=== PATIENT | female | born 1945 | race Caucasian/White ===

== ENCOUNTER 2017-02-16 15:50 | Inpatient (IN) | payer MEDICARE ==
[~2017-02-16] VITALS: Ht 162.6 cm; Wt 76.7 kg
[2017-02-16] VITALS (15 sets, daily range): BP systolic 79–115; BP diastolic 43–63; PULSE 35–50; RESP 12–18; TEMP 97.6–98; O2SAT 94–100
[2017-02-16] MEDS ORDERED: ATROPINE SULFATE 1 MG/10 ML SYRINGE ONE (16:11)
[2017-02-16] MEDS ORDERED: SODIUM CHLORIDE 0.9% FLUSH 10 ML FLUSH IVF PRN (16:30)
[2017-02-16] MEDS ORDERED: SODIUM CHLOR 0.9% 1000 ML INJ 1,000 ML IV ONE ×3 (16:30→17:30)
[2017-02-16] MEDS ORDERED: ATROPINE SULFATE 1 MG/10 ML SYRINGE IV PUSH ONE ×2 (16:30→18:15)
--- NOTE | 2017-02-16 16:32 | PD ---
HPI Chief Complaint: Dizziness Time Seen by Provider: 16:00 Travel History International Travel<30 days: No Contact w/Intl Traveler<30days: No Traveled to known affect area: No History of Present Illness HPI Patient is a 71-year-old female who presents to emergency room complaints of lightheadedness, dizziness, diaphoresis. Patient reports that symptoms began 1 ago after she came home from her exercise class. Patient reports that she was getting ready to walk her dog when all of a sudden, she became lightheaded and dizzy. Reports that she became diaphoretic and became nauseous and vomited x 1. Reports that she has seen her pcp recently - reports that her medications were changed from metoprolol to verapamil 120 mg and she started these medications 2 days ago. Patient reports that she also takes propanolol 120 mg, lisinopril 10 mg, amlodipine 5 mg, atorvastatin 40 mg. Reports that the metoprolol made her left leg swell too much so her medication. PFSH Past Medical History Gastrointestinal Disorders: Yes (Guillermo's esophagus ) Hypertension: Yes Tetanus Vaccination: > 5 Years Influenza Vaccination: No ?: Not Menopausal: Yes Past Surgical History Other Surgery: Yes (Adenoids) Social History Alcohol Use: Yes (Wine daily ) Tobacco Use: No Substance Use: No Allergies-Medications (Allergen,Severity, Reaction): Coded Allergies: No Known Allergies (Unverified , 02/16/17) Reported Meds & Prescriptions Reported Meds & Active Scripts Active Reported Verapamil ER (Verapamil HCl) 120 Mg Tab 120 Mg PO DAILY Aspirin 81 (Aspirin) 81 Mg Tabdr 81 Mg PO DAILY Lansoprazole 30 Mg Capdr 30 Mg PO DAILY Propranolol ER 24 HR (Propranolol HCl) 120 Mg Cap 120 Mg PO DAILY Lisinopril 10 Mg Tab 10 Mg PO DAILY Amlodipine (Amlodipine Besylate) 5 Mg Tab 5 Mg PO DAILY Lipitor (Atorvastatin Calcium) 40 Mg Tab 40 Mg PO HS Review of Systems General / Constitutional: No: Fever Eyes: No: Visual changes HENT: No: Headaches Cardiovascular: Positive: Irregular Rhythm, Diaphoresis, No: Chest Pain or Discomfort Respiratory: No: Shortness of Breath Gastrointestinal: Positive: Nausea, Vomiting, No: Abdominal Pain Genitourinary: No: Dysuria Musculoskeletal: No: Pain Skin: No Rash Neurologic: No: Weakness Psychiatric: No: Depression Endocrine: No: Polydipsia Hematologic/Lymphatic: No: Easy Bruising Physical Exam Narrative GENERAL: Severe distress SKIN: Focused skin assessment warm/dry. HEAD: Atraumatic. Normocephalic. EYES: Pupils equal and round. No scleral icterus. No injection or drainage. ENT: No nasal bleeding or discharge. Mucous membranes pink and moist. NECK: Trachea midline. No JVD. CARDIOVASCULAR: Profound bradycardia. No murmur appreciated. RESPIRATORY: No accessory muscle use. Clear to auscultation. Breath sounds equal bilaterally. GASTROINTESTINAL: Abdomen soft, non-tender, nondistended. Hepatic and splenic margins not palpable. MUSCULOSKELETAL: No obvious deformities. No clubbing. No cyanosis. No edema. NEUROLOGICAL: Awake and alert. No obvious cranial nerve deficits. Motor grossly within normal limits. Normal speech. PSYCHIATRIC: Appropriate mood and affect; insight and judgment normal. Data Data Last Documented VS Vital Signs Date Time Temp Pulse Resp B/P Pulse Ox O2 Delivery O2 Flow Rate FiO2 02/16/17 17:00 46 14 93/44 98 Nasal Cannula 2 02/16/17 15:52 97.6 Orders Atropine Inj (Atropine Inj) (02/16/17 16:11) Electrocardiogram (02/16/17 16:21) B-Type Natriuretic Peptide (02/16/17 16:21) Ckmb (Isoenzyme) Profile (02/16/17 16:21) Complete Blood Count With Diff (02/16/17 16:21) Comprehensive Metabolic Panel (02/16/17 16:21) Magnesium (Mg) (02/16/17 16:21) Prothrombin Time / Inr (Pt) (02/16/17 16:21) Act Partial Throm Time (Ptt) (02/16/17 16:21) Troponin I (02/16/17 16:21) Lipase (02/16/17 16:21) Chest, Single Ap (02/16/17 16:21) Ecg Monitoring (02/16/17 16:21) Iv Access Insert/Monitor (02/16/17 16:21) Oximetry (02/16/17 16:21) Sodium Chloride 0.9% Flush (Ns Flush) (02/16/17 16:30) Bedside Glucose CHRIS.AC&HS (02/16/17 16:21) Atropine Inj (Atropine Inj) (02/16/17 16:30) Sodium Chlor 0.9% 1000 Ml Inj (Ns 1000 M (02/16/17 16:30) Sodium Chlor 0.9% 1000 Ml Inj (Ns 1000 M (02/16/17 16:30) Calcium Gluconate Inj (Calcium Gluconate (02/16/17 16:45) Glucagon Inj (Glucagon Inj) (02/16/17 16:45) Consult Cardiology (02/16/17 ) Lactic Acid Sepsis Protocol (02/16/17 16:42) Blood Culture (02/16/17 16:42) Urinalysis - C+S If Indicated (02/16/17 16:42) Admit Order (Ed Use Only) (02/16/17 17:06) Labs Laboratory Tests Test 02/16/17 16:20 White Blood Count 8.7 TH/MM3 Red Blood Count 2.89 MIL/MM3 Hemoglobin 9.1 GM/DL Hematocrit 28.2 % Mean Corpuscular Volume 97.6 FL Mean Corpuscular Hemoglobin 31.5 PG Mean Corpuscular Hemoglobin 32.3 % Concent Red Cell Distribution Width 13.7 % Platelet Count 295 TH/MM3 Mean Platelet Volume 8.0 FL Neutrophils (%) (Auto) 81.8 % Lymphocytes (%) (Auto) 9.8 % Monocytes (%) (Auto) 5.6 % Eosinophils (%) (Auto) 2.6 % Basophils (%) (Auto) 0.2 % Neutrophils # (Auto) 7.2 TH/MM3 Lymphocytes # (Auto) 0.8 TH/MM3 Monocytes # (Auto) 0.5 TH/MM3 Eosinophils # (Auto) 0.2 TH/MM3 Basophils # (Auto) 0.0 TH/MM3 CBC Comment DIFF FINAL Differential Comment Prothrombin Time 10.6 SEC Prothromb Time International 1.0 RATIO Ratio Activated Partial 25.1 SEC Thromboplast Time Sodium Level 138 MEQ/L Potassium Level 5.1 MEQ/L Chloride Level 106 MEQ/L Carbon Dioxide Level 20.3 MEQ/L Anion Gap 12 MEQ/L Blood Urea Nitrogen 32 MG/DL Creatinine 1.90 MG/DL Estimat Glomerular Filtration 26 ML/MIN Rate Random Glucose 193 MG/DL Calcium Level 8.9 MG/DL Magnesium Level 1.7 MG/DL Total Bilirubin 0.8 MG/DL Aspartate Amino Transf 91 U/L (AST/SGOT) Alanine Aminotransferase 53 U/L (ALT/SGPT) Alkaline Phosphatase 142 U/L Total Creatine Kinase 81 U/L Troponin I LESS THAN 0.02 NG/ML B-Type Natriuretic Peptide 416 PG/ML Total Protein 7.2 GM/DL Albumin 3.6 GM/DL Lipase 435 U/L MDM Medical Decision Making Medical Screen Exam Complete: Yes Emergency Medical Condition: Yes Interpretation(s) EKG at 1605: Bradycardia at 35 beats for minute, QT/QTc 498/399, no acute ST or T-wave changes Vital Signs Date Time Temp Pulse Resp B/P Pulse Ox O2 Delivery O2 Flow Rate FiO2 02/16/17 16:30 100 Nasal Cannula 4 02/16/17 16:20 35 02/16/17 15:52 97.6 35 16 85/46 98 Differential Diagnosis Differential includes arrhythmia, beta ashley overdose, calcium channel sahley overdose, sepsis, dehydration, electrolyte abnormality Narrative Course Patient is a 71-year-old female who presents to emergency room with complaints of diaphoresis, nausea vomiting and lightheadedness. Symptoms began one hour after she came home from her workout today. Upon arrival to emergency room, patient was hypotensive with a blood pressure of 85/46, heart rate was 35. Patient was diaphoretic on initial exam. Patient was placed on a rehabilitation inspector as well as continuous pulse oximeter. Patient was given 1mg IV atropine which brought her heart rate up to 45-50. BS 211. Concern for possible beta ashley overdose (though patient last took metoprolol 2 days ago) vs calcium channel overdose Patient responded to atropine 1mg and HR now 50, patient is no longer diaphoretic at this time, reports that she is feeling better. Patient was given dose of IV glucagon to see if there is response for consideration of beta ashley overdose, heart rate remains in the 50 with glucagon. BP now 103/51 Patient was then given 1 dose of IV Calcium gluconate at there is consideration for possible calcium channel overdose - HR 44-45 and BP 91/59 Case was reviewed with Dr. Green with cardiology - agrees with plan of care to transfer to [facility] as she may need further aggressive treatment for her bradycardia Case reviewed with Dr. Garnica who accepts pt to CIC at [facility] CBC & BMP Diagram 02/16/17 16:20 patient BUN/CR 32/1.90 - patients renal function elevated most likely from dehydration, she is responding to IVF at this time. on re-evaluation, HR now 35, bp 80/53 - patient did not respond to glucagon or calcium gluconate. Patient was given another dose of atropine 1mg, HR now in the 40's and sbp now 97/[address] Suresh - will upgrade to ICU Critical Care Narrative Aggregate critical care time was 60 minutes. Time to perform other separately billable procedures was not included in the critical care time. My time did not include minutes spent treating any other patients simultaneously or on activities that did not directly contribute to the patient's treatment. The services I provided to this patient were to treat and/or prevent clinically significant deterioration that could result in: , decompensation, deterioration I provided critical care services requiring my management, as noted below: Chart data review, documentation time, medication orders and management, vital sign assessments/reviewing monitor data, ordering and reviewing lab tests, ordering and interpreting/reviewing x-rays and diagnostic studies, care of the patient and discussion of the patient with the admitting physicians. Diagnosis Primary Impression: Bradycardia with 31-40 beats per minute Additional Impressions: Bradycardia, drug induced Dehydration Anemia Admitting Information Admitting Physician Requests: Estefani Shay DO Feb 16, 2017 16:32
[2017-02-16] MEDS ORDERED: LIPI40TA PO (16:36)
[2017-02-16] MEDS ORDERED: LANS30CA PO (16:36)
[2017-02-16] MEDS ORDERED: AMLO5TAB2 PO (16:36)
[2017-02-16] MEDS ORDERED: LISI10TA3 PO (16:36)
[2017-02-16] MEDS ORDERED: VERA1TAB9 PO (16:36)
[2017-02-16] MEDS ORDERED: ASPI-110 PO (16:36)
[2017-02-16] MEDS ORDERED: PROP120C PO (16:36)
[2017-02-16 16:40] LABS: AUTOMATED NEUTROPHIL # 7.2 TH/MM3 (1.8-7.7); BASOPHIL % 0.2 % (0.0-2.0); EOSINOPHIL # 0.2 TH/MM3 (0-0.4); EOSINOPHIL % 2.6 % (0.0-4.0); HEMATOCRIT 28.2 % (35.0-46.0); LYMPH % 9.8 % (9.0-44.0); LYMPHOCYTE # 0.8 TH/MM3 (1.0-4.8); MEAN CELL VOLUME 97.6 FL (80.0-100.0); MEAN CORPUSCULAR HEMOGLOBIN 31.5 PG (27.0-34.0); MEAN CORPUSCULAR HGB CONC 32.3 % (32.0-36.0); MONO % 5.6 % (0.0-8.0); NEUT % 81.8 % (16.0-70.0); PLATELET COUNT 295 TH/MM3 (150-450); RED BLOOD COUNT 2.89 MIL/MM3 (4.00-5.30); RED CELL DISTRIBUTION WIDTH 13.7 % (11.6-17.2); WHITE BLOOD COUNT 8.7 TH/MM3 (4.0-11.0)
[2017-02-16] MEDS ORDERED: CALCIUM GLUCONATE INJ 1 GM in DEXTROSE 5% IN WATER 100ML INJ 100 ML IV ONE ×2 (16:45)
[2017-02-16] MEDS ORDERED: GLUCAGON 1 MG/ML VIAL IV PUSH ONE (16:45)
[2017-02-16 16:46] LABS: HEMO FLAGS DIFF FINAL
[2017-02-16 16:49] LABS: CHLORIDE 106 MEQ/L (98-107); POTASSIUM 5.1 MEQ/L (3.5-5.1); SODIUM (NA) 138 MEQ/L (136-145)
--- NOTE | 2017-02-16 16:52 | RADRPT ---
EXAM DATE/TIME: 02/16/2017 16:38 [facility] COMPARISON: No previous studies available for comparison. INDICATIONS : Syncope. MEDICAL HISTORY : None. SURGICAL HISTORY : None. ENCOUNTER: Initial ACUITY: 1 day PAIN SCORE: 0/10 LOCATION: Bilateral chest FINDINGS: The lungs are clear without infiltrate, nodule, or mass. There is no appreciable pleural effusion fo r technique. Heart and mediastinum are unremarkable. CONCLUSION: No acute cardiopulmonary disease. Valeri Tiwari MD on February 16, 2017 at 16:50 Board Certified Radiologist. This report was verified electronically.
[2017-02-16 16:53] LABS: ANION GAP 12 MEQ/L (5-15); BICARBONATE 20.3 MEQ/L (21.0-32.0); BLOOD UREA NITROGEN 32 MG/DL (7-18); MAGNESIUM 1.7 MG/DL (1.5-2.5)
[2017-02-16 16:54] LABS: APTT (PATIENT) 25.1 SEC (24.3-30.1); PROTHROMBIN TIME - PATIENT 10.6 SEC (9.8-11.6)
[2017-02-16 16:56] LABS: ALT (GPT) 53 U/L (10-53); AST (GOT) 91 U/L (15-37); GLOMERULAR FILTRATION RATE 26 ML/MIN (>89)
[2017-02-16 16:57] LABS: TOTAL BILIRUBIN ADULT 0.8 MG/DL (0.2-1.0)
[2017-02-16 16:59] LABS: ALKALINE PHOSPHATASE 142 U/L (45-117)
--- NOTE | 2017-02-16 17:29 | HHI.HP ---
cc: Maame Cervantes MD [facility] Service [facility] Hospitalists Primary Care Physician Maame Cervantes MD Admission Diagnosis Symptomatic Bradycardia Diagnoses: Chief Complaint: dizziness Travel History International Travel<30 Days: No Contact w/Intl Traveler <30 Da: No Traveled to Known Affected Are: No History of Present Illness This is a 71-year-old female with past medical history significant for protection presents to [facility] complaining of dizziness. The patient states that she had been recently started on verapamil efforts to control her blood pressure. The patient states that this morning she started feeling dizzy and sweating profusely. The patient however denies any chest pain , palpitations, fevers, does complain of chills. Patient said that she had dry heaving this morning. Otherwise denies dysuria, abdominal pain. The patient states that laying down somewhat her dizziness improved and standing up makes it worse. The patient was in the emergency department and evaluated. Found to be profoundly bradycardic and as per ED physician report given IV atropine which improved the patient's heart rate, patient also was given IV fluids, glucagon and calcium channel ashley was being administered during this interview. A shunt also was found to be hypotensive with a systolic blood pressure in the 80s which has improved after being given IV fluids. Review of Systems As per history of present illness, other systems reviewed by me and negative Past Family Social History Past Medical History Hypertension Guillermo's esophagus Past Surgical History Bunionectomy Adenoidectomy Blepharoplasty Reported Medications Last Impressions Chest X-Ray 02/16/17 1621 Signed Impressions: Service Date/Time: Thursday, February 16, 2017 16:38 - CONCLUSION: No acute cardiopulmonary disease. Valeri Tiwari MD Reviewed by me Allergies: Coded Allergies: No Known Allergies (Unverified , 02/16/17) Active Ordered Medications Current Medications Medications (Trade) Dose Ordered Sig/Kathy Route Start Time Stop Time Status Last Admin Sodium Chloride 2 ml 2 ml UNSCH PRN IVF 02/16/17 16:30 (NS 1000 ml Inj) 1,000 ml @ 100 mls/hr Q10H IV 02/16/17 17:25 (NS Flush) 2 ml UNSCH PRN IV FLUSH 02/16/17 17:30 (NS Flush) 2 ml BID IV FLUSH 02/16/17 21:00 (Tylenol) 650 mg Q4H PRN PO 02/16/17 18:00 (Zofran Inj) 4 mg Q6H PRN IVP 02/16/17 18:00 (Heparin Inj) 5,000 units Q8HR SQ 02/16/17 22:00 (Morenita-Colace) 1 tab BID PO 02/16/17 21:00 Magnesium Hydroxide 30 ml 30 ml Q12HR PRN PO 02/16/17 21:00 Sodium Chloride 1,000 ml @ 999 mls/hr BOLUS ONCE IV 02/16/17 17:30 02/16/17 18:30 (NS 500 ml Inj) 500 ml @ 500 mls/hr BOLUS ONCE IV 02/16/17 17:30 02/16/17 18:29 02/16/17 17:30 Family History Denies family history of hypertension. Denies family history of heart disease or cancer. Social History The patient denies smoking him a patient states she drinks 3 glasses 1 daily. Denies illicit drug use. The patient is and has 2 children. Physical Exam Vital Signs Vital Signs Date Time Temp Pulse Resp B/P Pulse Ox O2 Delivery O2 Flow Rate FiO2 02/16/17 17:00 46 14 93/44 98 Nasal Cannula 2 02/16/17 16:45 50 16 103/51 100 Nasal Cannula 2 02/16/17 16:30 46 14 94/47 99 Nasal Cannula 4 02/16/17 16:30 100 Nasal Cannula 4 02/16/17 16:20 35 02/16/17 16:15 44 18 93/44 98 Nasal Cannula 4 02/16/17 16:00 35 16 79/43 100 Nasal Cannula 4 02/16/17 15:52 97.6 35 16 85/46 98 Physical Exam GENERAL: This is a well-nourished, well-developed patient, in no apparent distress. SKIN: No rashes, ecchymoses or lesions. Cool and dry. HEAD: Atraumatic. Normocephalic. No temporal or scalp tenderness. EYES: Pupils equal round and reactive. Extraocular motions intact. No scleral icterus. No injection or drainage. ENT: Nose without bleeding, purulent drainage or septal hematoma. Throat without erythema, tonsillar hypertrophy or exudate. Uvula midline. Airway patent. NECK: Trachea midline. No JVD or lymphadenopathy. Supple, nontender, no meningeal signs. CARDIOVASCULAR: Bradycardic, but her rate and rhythm, no murmur. No gallops. RESPIRATORY: Clear to auscultation. Breath sounds equal bilaterally. No wheezes , rales, or rhonchi. GASTROINTESTINAL: Abdomen soft, non-tender, nondistended. No hepato-splenomegaly , or palpable masses. No guarding. MUSCULOSKELETAL: Extremities without clubbing, cyanosis, or edema. No joint tenderness, effusion, or edema noted. No calf tenderness. Negative Homans sign bilaterally. NEUROLOGICAL: Awake and alert. Cranial nerves II through XII intact. Motor and sensory grossly within normal limits. Five out of 5 muscle strength in all muscle groups. Normal speech. Laboratory Laboratory Tests Test 02/16/17 16:20 White Blood Count 8.7 Red Blood Count 2.89 Hemoglobin 9.1 Hematocrit 28.2 Mean Corpuscular Volume 97.6 Mean Corpuscular Hemoglobin 31.5 Mean Corpuscular Hemoglobin 32.3 Concent Red Cell Distribution Width 13.7 Platelet Count 295 Mean Platelet Volume 8.0 Neutrophils (%) (Auto) 81.8 Lymphocytes (%) (Auto) 9.8 Monocytes (%) (Auto) 5.6 Eosinophils (%) (Auto) 2.6 Basophils (%) (Auto) 0.2 Neutrophils # (Auto) 7.2 Lymphocytes # (Auto) 0.8 Monocytes # (Auto) 0.5 Eosinophils # (Auto) 0.2 Basophils # (Auto) 0.0 CBC Comment DIFF FINAL Differential Comment Prothrombin Time 10.6 Prothromb Time International 1.0 Ratio Activated Partial 25.1 Thromboplast Time Sodium Level 138 Potassium Level 5.1 Chloride Level 106 Carbon Dioxide Level 20.3 Anion Gap 12 Blood Urea Nitrogen 32 Creatinine 1.90 Estimat Glomerular Filtration 26 Rate Random Glucose 193 Calcium Level 8.9 Magnesium Level 1.7 Total Bilirubin 0.8 Aspartate Amino Transf 91 (AST/SGOT) Alanine Aminotransferase 53 (ALT/SGPT) B-Type Natriuretic Peptide 416 Total Protein 7.2 Albumin 3.6 Lipase 435 Result Diagram: 02/16/17 1620 02/16/17 1620 Imaging Last Impressions Chest X-Ray 02/16/17 1621 Signed Impressions: Service Date/Time: Thursday, February 16, 2017 16:38 - CONCLUSION: No acute cardiopulmonary disease. Valeri Tiwari MD Assessment and Plan Problem List: (1) Symptomatic bradycardia ICD Code: R00.1 Status: Acute Plan: Patient percent with dizziness and found to be bradycardic. Status post glucagon, IV calcium gluconate and IV atropine with partial response of heart rate. Admit the patient to intensive care unit the patient is hypotensive and bradycardic despite above-mentioned measures. Atropine at bedside to be given for heart rate less than 35 or symptomatically bradycardia. Cardiology consult - ED physician communicated with Dr. Green who requested the patient to be transferred to the [facility] in [place]. Troponin negative, monitor cardiac enzymes serially. EKG which was reviewed by me showed a ventricular bradycardia, no ST-T changes suggestive of active ischemia. (2) Hypotension ICD Code: I95.9 Status: Acute Plan: Patient still severely hypotensive and dehydrated on exam. I will give 1 L normal saline bolus IV once and continue with maintenance IV fluids at 150 mL's per hour. Hold all antihypertensive medications. (3) KAYLA (acute kidney injury) ICD Code: N17.9 Status: Acute Plan: Creatinine admission 1.9. I do not have any previous labs to compare with. Continue IV fluids and continue to monitor vital signs. Check renal ultrasound and insert Trevizo catheter for strict I's and O's. (4) Dehydration ICD Code: E86.0 Status: Acute (5) Anemia ICD Code: D64.9 Status: Acute Plan: Patient has history of gastric bypass and she has to get IV iron infusions every year. We'll order iron studies and replace if needed. If iron is required then the patient will most likely to get IV iron since oral iron is likely not absorbed. (6) Hyperglycemia ICD Code: R73.9 Status: Acute Plan: No previous history of diabetes. Hypoglycemia could be likely secondary to glucagon administration. I will order a hemoglobin A1c. In the meantime I will place on SSI coverage with insulin NovoLog, monitor Accu- Cheks. Assessment and Plan GI prophylaxis: Continue PPI. DVT prophylaxis: We'll start on hypertensive potassium place on SCDs. Code Status Full code Discussed Condition With Patient, ED physician. Physician Certification 2 Midnight Certification Type: Admission for Inpatient Services Order for Inpatient Services The services are ordered in accordance with Medicare regulations or non- Medicare payer requirements, as applicable. In the case of services not specified as inpatient-only, they are appropriately provided as inpatient services in accordance with the 2-midnight benchmark. Estimated LOS (days): 2 days is the estimated time the patient will need to remain in the hospital, assuming treatment plan goals are met and no additional complications. Post-Hospital Plan: Not yet determined Problem Qualifiers (1) Hypotension: Qualified Code: I95.9 - Hypotension, unspecified hypotension type (2) Anemia: Qualified Code: D64.9 - Anemia, unspecified type Chino tSreet MD Feb 16, 2017 17:29
[2017-02-16] MEDS ORDERED: SODIUM CHLORIDE 0.9% FLUSH 10 ML FLUSH IV FLUSH PRN (17:30)
[2017-02-16] MEDS ORDERED: SODIUM CHLORID 0.9% 500 ML INJ 500 ML IV ONE (17:30)
[2017-02-16 17:38] LABS: CREATINE KINASE 81 U/L (26-192)
[2017-02-16] MEDS ORDERED: ONDANSETRON HCL 4 MG/2 ML VIAL IVP PRN (18:00)
[2017-02-16] MEDS ORDERED: ACETAMINOPHEN 325 MG TAB PO PRN (18:00)
[2017-02-16] MEDS: SODIUM CHLOR 0.9% 1000 ML INJ 1,000 ML IV SCH (18:25)
[2017-02-16] MEDS ORDERED: ATROPINE SULFATE 1 MG/ML VIAL IV PUSH PRN (18:30)
[2017-02-16 19:55] LABS: LACTIC ACID GHOST NOT REPORTABLE
[2017-02-16] MEDS ORDERED: MAGNESIUM HYDROXIDE SUSP 30 ML CUP PO PRN (21:00)
[2017-02-16] MEDS: DOCUSATE SODIUM 50 MG/SENNA 8.6 MG TAB PO SCH (21:00)
[2017-02-16] MEDS: SODIUM CHLORIDE 0.9% FLUSH 10 ML FLUSH IV FLUSH SCH (21:00)
[2017-02-16] MEDS ORDERED: ATORVASTATIN 40 MG TAB PO SCH (21:00)
--- NOTE | 2017-02-16 21:08 | RADRPT ---
EXAM DATE/TIME: 02/16/2017 20:10 [facility] COMPARISON: No previous studies available for comparison. INDICATIONS : Increased BUN/Creatinine. MEDICAL HISTORY : Hypertension. Guillermo's esophagus. bradycardia. SURGICAL HISTORY : Bunionectomy. Adenoidectomy. Blepharoplasty. ENCOUNTER: Initial ACUITY: 1 day PAIN SCORE: 0/10 LOCATION: Bilateral flank MEASUREMENTS: RIGHT KIDNEY: 11.6 x 6.0 x 5.8 cm LEFT KIDNEY: 11.4 x 6.4 x 5.6 cm FINDINGS: Increased parenchymal echogenicity seen of both kidneys. No hydronephrosis. Trace perinephric fluid s een on the left, etiology uncertain. Urinary bladder nondistended and grossly unremarkable. CONCLUSION: Bilateral echogenic kidneys typical of chronic parenchymal disease. No evidence of obstructive uropat hy. Trace nonspecific perinephric fluid on the left. Robinson Levi MD on February 16, 2017 at 21:04 Board Certified Radiologist. This report was verified electronically.
[2017-02-16 21:53] LABS: CREATINE KINASE 70 U/L (26-192)
[2017-02-16] MEDS: HEPARIN SODIUM - SQ 10,000 UNITS/ML VIAL SQ SCH (21:56)
[2017-02-17 03:00] VITALS: BP 120/64; PULSE 65; RESP 12; TEMP 98.1; O2SAT 94
[2017-02-17] MEDS: SODIUM CHLOR 0.9% 1000 ML INJ 1,000 ML IV SCH (03:25)
[2017-02-17] MEDS: HEPARIN SODIUM - SQ 10,000 UNITS/ML VIAL SQ SCH (05:31)
[2017-02-17 06:48] LABS: AUTOMATED NEUTROPHIL # 6.7 TH/MM3 (1.8-7.7); BASOPHIL % 0.2 % (0.0-2.0); EOSINOPHIL % 0.1 % (0.0-4.0); HEMATOCRIT 28.4 % (35.0-46.0); HEMO FLAGS DIFF FINAL; LYMPH % 7.7 % (9.0-44.0); LYMPHOCYTE # 0.6 TH/MM3 (1.0-4.8); MEAN CORPUSCULAR HEMOGLOBIN 32.8 PG (27.0-34.0); MEAN CORPUSCULAR HGB CONC 32.8 % (32.0-36.0); MONO % 8.1 % (0.0-8.0); NEUT % 83.9 % (16.0-70.0); PLATELET COUNT 244 TH/MM3 (150-450); RED BLOOD COUNT 2.84 MIL/MM3 (4.00-5.30); RED CELL DISTRIBUTION WIDTH 14.1 % (11.6-17.2)
[2017-02-17 07:00] VITALS: BP 130/69; PULSE 73; RESP 16; TEMP 98.6; O2SAT 92
[2017-02-17 07:32] LABS: CREATINE KINASE 61 U/L (26-192)
[2017-02-17 07:59] LABS: BLOOD UREA NITROGEN 31 MG/DL (7-18); GLOMERULAR FILTRATION RATE 35 ML/MIN (>89)
[2017-02-17 08:01] LABS: ALT (GPT) 74 U/L (10-53); AST (GOT) 75 U/L (15-37)
[2017-02-17 08:03] LABS: CHLORIDE 110 MEQ/L (98-107); POTASSIUM 4.7 MEQ/L (3.5-5.1); SODIUM (NA) 139 MEQ/L (136-145)
[2017-02-17 08:04] LABS: ALKALINE PHOSPHATASE 120 U/L (45-117); ANION GAP 11 MEQ/L (5-15); BICARBONATE 18.4 MEQ/L (21.0-32.0); TOTAL BILIRUBIN ADULT 0.7 MG/DL (0.2-1.0)
[2017-02-17] MEDS: DOCUSATE SODIUM 50 MG/SENNA 8.6 MG TAB PO SCH (08:50)
[2017-02-17] MEDS: SODIUM CHLORIDE 0.9% FLUSH 10 ML FLUSH IV FLUSH SCH (08:51)
[2017-02-17] MEDS ORDERED: ASPIRIN EC 81 MG TABEC PO SCH (09:00)
[2017-02-17] MEDS ORDERED: LANSOPRAZOLE SOLUTAB 30 MG TAB PO SCH (09:00)
[2017-02-17 09:30] VITALS: O2SAT 95
--- NOTE | 2017-02-17 09:58 | HHI.PR ---
Subjective Remarks Follow-up symptomatic bradycardia. She states that she feels much better today. Denies chest pain, lightheadedness, dizziness. Denies dyspnea, cough. She believes that her symptoms were related to medication change. She was apparently switched to verapamil a couple days ago. Objective Vitals Vital Signs Date Time Temp Pulse Resp B/P Pulse Ox O2 Delivery O2 Flow Rate FiO2 02/17/17 07:00 73 02/17/17 07:00 98.6 73 16 130/69 92 02/17/17 03:00 98.1 65 12 120/64 94 02/17/17 03:00 65 02/16/17 23:00 43 02/16/17 23:00 98.0 48 12 107/63 96 02/16/17 22:07 95 Nasal Cannula 2.00 02/16/17 19:30 48 02/16/17 19:30 97.7 48 16 113/49 96 02/16/17 18:45 48 14 108/60 98 Nasal Cannula 2 02/16/17 18:30 46 16 115/52 96 Nasal Cannula 2 02/16/17 18:15 48 16 86/54 94 Nasal Cannula 2 02/16/17 18:00 40 14 97/48 97 Nasal Cannula 2 02/16/17 17:45 44 14 80/47 98 Nasal Cannula 2 02/16/17 17:30 44 16 91/59 98 Nasal Cannula 2 02/16/17 17:00 46 14 93/44 98 Nasal Cannula 2 02/16/17 16:45 50 16 103/51 100 Nasal Cannula 2 02/16/17 16:30 46 14 94/47 99 Nasal Cannula 4 02/16/17 16:30 100 Nasal Cannula 4 02/16/17 16:20 35 02/16/17 16:15 44 18 93/44 98 Nasal Cannula 4 02/16/17 16:00 35 16 79/43 100 Nasal Cannula 4 02/16/17 15:52 97.6 35 16 85/46 98 I/O 02/16/17 02/16/17 02/16/17 02/17/17 02/17/17 02/17/17 07:00 15:00 23:00 07:00 15:00 23:00 Intake Total 2500 ml 1700 ml Output Total 300 ml Balance 2500 ml 1400 ml Intake Oral 720 ml IV Total 2500 ml 980 ml Output Urine Total 300 ml # Bowel Movements 0 Result Diagram: 02/17/17 0551 02/17/17 0600 Imaging Last Impressions Chest X-Ray 02/16/17 1621 Signed Impressions: Service Date/Time: Thursday, February 16, 2017 16:38 - CONCLUSION: No acute cardiopulmonary disease. Valeri Tiwari MD Renal Ultrasound 02/16/17 0000 Signed Impressions: Service Date/Time: Thursday, February 16, 2017 20:10 - CONCLUSION: Bilateral echogenic kidneys typical of chronic parenchymal disease. No evidence of obstructive uropathy. Trace nonspecific perinephric fluid on the left. Robinson Levi MD Objective Remarks General: Elderly female in no acute distress. Heart: Regular rate and rhythm. No murmur. Lungs: Clear to auscultation bilaterally. No wheezes, rales, or rhonchi. Breathing is nonlabored. Abdomen: Soft, nontender, nondistended. Extremities: No lower extremity edema. Psych: Alert and oriented. Procedures None Urinary Catheter: No Vascular Central Line Catheter: No A/P Problem List: (1) Symptomatic bradycardia ICD Code: R00.1 Status: Acute (2) Hypotension ICD Code: I95.9 Status: Resolved (3) KAYLA (acute kidney injury) ICD Code: N17.9 Status: Acute (4) Dehydration ICD Code: E86.0 Status: Acute (5) Anemia ICD Code: D64.9 Status: Acute (6) Hyperglycemia ICD Code: R73.9 Status: Acute Assessment and Plan 1. Symptomatic bradycardia: Patient initially presented with dizziness and was found to have heart rate in the 30s. She received glucagon, IV calcium gluconate , and IV atropine. Kendrick sinus rhythm, rate in the 70s. Blood pressure is much improved as well. Cardiology consultation is pending. 2. Hypotension: Likely secondary to dehydration. Blood pressure has improved with IV fluid hydration. 3. Acute kidney injury: Secondary to dehydration. Creatinine improving. Renal ultrasound shows no evidence of obstructive uropathy. Bilateral kidneys have appearance typical of chronic parenchymal disease. Patient denies history of chronic kidney disease. 4. Anemia: H&H stable overnight. 5. Hyperglycemia: Improved. 6. GI prophylaxis: PPI. 7. DVT prophylaxis: SCDs. Patient refusing heparin. 8. Elevated LFTs: Check ultrasound of the liver. Follow labs. Problem Qualifiers (1) Hypotension: Qualified Code: I95.9 - Hypotension, unspecified hypotension type (2) Anemia: Qualified Code: D64.9 - Anemia, unspecified type Roberto Patel MD Feb 17, 2017 09:58
[2017-02-17 12:00] VITALS: BP 141/67; PULSE 72; RESP 16; TEMP 98.5; O2SAT 94
--- NOTE | 2017-02-17 13:18 | HHI.DCPOC ---
Discharge Care Plan Diagnosis: (1) Bradycardia, drug induced (2) Dehydration (3) KAYLA (acute kidney injury) (4) Anemia (5) Symptomatic bradycardia (6) Hyperglycemia (7) Hypotension Goals to Promote Your Health * To prevent worsening of your condition and complications * To maintain your health at the optimal level Directions to Meet Your Goals Take your medications as prescribed Follow your dietary instruction Follow activity as directed Keep your appointments as scheduled Take your immunizations and boosters as scheduled If your symptoms worsen call your PCP, if no PCP go to Urgent Care Center or Emergency Room Smoking is Dangerous to Your Health. Avoid second hand smoke Call the 24-hour hour crisis hotline for domestic abuse at Roberto Patel MD Feb 17, 2017 13:18
--- NOTE | 2017-02-17 13:51 | EKG ---
Date Performed: 02/16/2017 Time Performed: 16:05:59 PTAGE: 71 years EKG: JUNCTIONAL BRADYCARDIA LOW QRS VOLTAGE IN PRECORDIAL LEADS ABNORMAL RHYTHM ECG INTERPRETATI ON BASED ON A DEFAULT AGE OF 39 YEARS NO PREVIOUS TRACING DOCTOR: Madhu Wilson Interpretating Date/Time 02/17/2017 13:50:09
--- NOTE | 2017-02-17 13:51 | EKG ---
Date Performed: 02/16/2017 Time Performed: 23:33:50 PTAGE: 71 years EKG: Probable junctional rhythm. Prolonged QT interval Septal ST-T changes are nonspecific Low Q RS voltages in precordial leads Compared to prior tracing no significant change Abnormal ECG PREVIOUS TRACING : 02/16/2017 16.05 DOCTOR: Madhu Wilson Interpretating Date/Time 02/17/2017 13:50:17
--- NOTE | 2017-02-17 13:55 | EKG ---
Date Performed: 02/17/2017 Time Performed: 05:48:06 PTAGE: 71 years EKG: Sinus rhythm rSr'(V1) - probable normal variant Compared to previous tracing, sinus rhythm has replaced junctiona l bradycardia Normal ECG PREVIOUS TRACING : 02/16/2017 23.33 DOCTOR: Madhu Wilson Interpretating Date/Time 02/17/2017 13:54:02
--- NOTE | 2017-02-17 15:39 | MB ---
cc: EFFIE MACIAS MD DATE OF CONSULTATION: 02/17/2017. REASON FOR CONSULTATION: Symptomatic bradycardia. 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 Verapamil was recently started. She only had a couple of doses of this verapamil where she began feeling sweaty, nauseous and lightheaded. She presented to the emergency department and was found to be in a junctional bradycardia at about 36 beats per minute initially. She was admitted to the intensive care unit and hydrated and as her medications have worn off, she has converted back to a normal sinus rhythm. She is completely asymptomatic and asking to be discharged home. She denies chest pain, shortness of breath, any residual lightheadedness or dizziness and she had no syncopal episode with this event. PAST MEDICAL HISTORY: 1. Hypertension. 2. Obesity. CURRENT MEDICATIONS: Aspirin 81 milligrams daily. ALLERGIES: NO KNOWN DRUG ALLERGIES. PHYSICAL EXAMINATION: VITAL SIGNS: Afebrile, pulse 73, respiratory rate 15, blood pressure 130/69 satting 92% on two liters. GENERAL: In general, a pleasant obese woman in no distress. NECK: No jugular venous distention. LUNGS: Clear to auscultation bilaterally. CARDIOVASCULAR: Regular rate and rhythm. No murmurs appreciated. ABDOMEN: Benign. EXTREMITIES: No edema. LABORATORY DATA: White count 8.0, hematocrit 28.4, platelet count 244,000. Sodium 139, potassium 4.7, chloride 100, bicarb 18.4, BUN 31, creatinine 1.45. Cardiac enzymes are negative x2. Liver enzymes are mildly elevated. BNP is mildly elevated. IMAGING STUDIES: Chest x-ray shows no acute disease. EKGS: Initial EKG showed a junctional rhythm at 36 with nonspecific changes. Current EKG and telemetry shows sinus rhythm in the 60s and 70s. IMPRESSION: Junctional rhythm. The patient in the setting of a new medication had what appears to be symptomatic junctional rhythm after administration of Glucagon and Atropine. This has resolved and she is in a normal rhythm and asymptomatic. I did advise that she have further observation while the hospital but she wishes to go home with outpatient followup. She says she will not take any further propranolol or verapamil. 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 Though this is not my first choice, I suppose it is reasonable given all the above, and I will see her in my office next week. She does understand she takes some increased risks by not participating in further observation. Thank you again for the opportunity to participate in this patient's care. MD YVES Justice/GEREMIAS /12:43 PM /3:34 PM
== END 2017-02-17 14:15 | disposition home or self-care (01) | DRG 309 ==
LOC: PHED 15:50 → PHEDA 17:07 → HCVR 19:35
PROVIDERS: ADMIT Family Medicine; ATTEND Family Medicine
DX: R00.1 Bradycardia, unspecified (principal); N17.9 Acute kidney failure, unspecified; I95.9 Hypotension, unspecified; D64.9 Anemia, unspecified; R25.1 Tremor, unspecified; E66.9 Obesity, unspecified; K22.70 Barrett's esophagus without dysplasia; R73.9 Hyperglycemia, unspecified; E86.0 Dehydration; I10 Essential (primary) hypertension; Z79.82 Long term (current) use of aspirin; Z98.84 Bariatric surgery status; Z68.29 Body mass index [BMI] 29.0-29.9, adult
CPT/HCPCS: 71010; 76775; 80053; 82550; 83605; 83690; 83735; 83880; 84484; 85025; 85610; 85730; 87040; 93005; 96374; 96375; J0461; J0610; J1610; J7030; J7040

== ENCOUNTER → 2017-02-20 | Outpatient (CLI) | payer MEDICARE ==
[~2017-02-20] MED LIST: AMLO5TAB2 PO; ASPI-110 PO; LANS30CA PO; LIPI40TA PO; LISI10TA3 PO
[2017-02-20 16:26] LABS: CHLORIDE 108 MEQ/L (98-107); POTASSIUM 3.5 MEQ/L (3.5-5.1); SODIUM (NA) 141 MEQ/L (136-145)
[2017-02-20 16:30] LABS: ANION GAP 10 MEQ/L (5-15); BICARBONATE 23.3 MEQ/L (21.0-32.0)
[2017-02-20 16:31] LABS: BLOOD UREA NITROGEN 18 MG/DL (7-18)
[2017-02-20 16:33] LABS: ALT (GPT) 42 U/L (10-53); AST (GOT) 30 U/L (15-37); GLOMERULAR FILTRATION RATE 49 ML/MIN (>89)
[2017-02-20 16:35] LABS: TOTAL BILIRUBIN ADULT 0.7 MG/DL (0.2-1.0)
[2017-02-20 16:36] LABS: ALKALINE PHOSPHATASE 123 U/L (45-117)
== END ==
LOC: PLAB 14:48
PROVIDERS: ATTEND Family Medicine
DX: N17.9 Acute kidney failure, unspecified (principal); N18.4 Chronic kidney disease, stage 4 (severe); R79.89 Other specified abnormal findings of blood chemistry
CPT/HCPCS: 36415; 80053

== ENCOUNTER → 2017-08-21 | Outpatient (CLI) | payer MEDICARE ==
[~2017-08-21] MED LIST changes: -ASPI-110 PO; +ASPI1TAB57 PO
[2017-08-21 13:49] LABS: ALT (GPT) 37 U/L (10-53); AST (GOT) 35 U/L (15-37); BICARBONATE 22.8 MEQ/L (21.0-32.0); BLOOD UREA NITROGEN 37 MG/DL (7-18); CALCIUM 9.2 MG/DL (8.5-10.1); CHLORIDE 105 MEQ/L (98-107); CHOLESTEROL 239 MG/DL (120-200); CREATININE 1.38 MG/DL (0.50-1.00); GLOMERULAR FILTRATION RATE 37 ML/MIN (>89); GLUCOSE,FASTING 85 MG/DL (74-99); SODIUM (NA) 139 MEQ/L (136-145)
[2017-08-21 13:52] LABS: ALKALINE PHOSPHATASE 129 U/L (45-117); CHOLESTEROL/ HDL RATIO 1.95 RATIO; HDL CHOLESTEROL 122.2 MG/DL (40.0-60.0); LDL CHOLESTEROL 102 MG/DL (0-99); TOTAL BILIRUBIN ADULT 0.5 MG/DL (0.2-1.0); TOTAL PROTEIN 7.7 GM/DL (6.4-8.2); TRIGLYCERIDES 72 MG/DL (42-150)
== END ==
LOC: PLAB 10:31
PROVIDERS: ATTEND Family Medicine
DX: I10 Essential (primary) hypertension (principal); E78.2 Mixed hyperlipidemia
CPT/HCPCS: 36415; 80053; 80061

== ENCOUNTER → 2017-10-18 | Outpatient (CLI) | payer MEDICARE ==
[2017-10-23 23:53] LABS: ALK PHOS BONE (ISOENZYMES) 32 % (28-66); ALK PHOS INTESTINE (ISOENZYME) 0 % (1-24); ALK PHOS LIVER (ISOENZYME) 68 % (25-69); ALK PHOS PLACENTAL ISOENZYME 0 % (UNDETECTABLE)
== END ==
LOC: PLAB 13:23
PROVIDERS: ATTEND Psychiatry & Neurology Neurology
DX: R79.89 Other specified abnormal findings of blood chemistry (principal); E53.8 Deficiency of other specified B group vitamins
CPT/HCPCS: 36415; 82607; 84080